=== PATIENT | female | born 1955 | race African-American/Black ===

== ENCOUNTER 2024-09-04 19:14 | Inpatient (IN) | payer MEDICARE, MEDICAID, OTHER ==
[~2024-09-04] VITALS: Ht 157.5 cm; Wt 56.7 kg
[2024-09-04] MEDS ORDERED: METHYLPREDNISOLONE SOD SUCC 125MG/2ML (ACT-O-VIAL) IV STA (19:21)
[2024-09-04] MEDS ORDERED: ASPIRIN 81MG TABLET PO ONE (19:30)
[2024-09-04] MEDS ORDERED: ALBUTEROL (0.083%) 2.5MG/3ML NEB HHN SCH (19:30)
[2024-09-04 19:50] LABS: BASOPHILS % 1.2 % (0.0-2.0); EOSINOPHILS % 1.7 % (0.0-5.0); HEMATOCRIT. 40.8 % (36.0-48.0); HEMOGLOBIN. 13.6 g/dL (12.0-16.0); LYMPHOCYTES % 31.5 % (20.0-50.0); MEAN CORPUSCULAR HEMOGLOBIN 31.1 pg (28.0-32.0); MEAN CORPUSCULAR HGB CONC 33.4 g/dL (31.0-37.0); MONOCYTES % 13.8 % (2.0-8.0); NEUTROPHILS % 51.8 % (40.0-76.0); PLATELET 204 x1000/uL (130-400); RED BLOOD CELL COUNT 4.39 mill/uL (4.2-5.4); RED CELL DISTRIBUTION WIDTH 13.1 % (11.6-14.6); WHITE BLOOD COUNT 6.1 x1000/uL (4.5-11.0)
[2024-09-04 20:00] LABS: CHLORIDE 101 mEq/L (98-107); SODIUM 137 mEq/L (136-145)
[2024-09-04 20:01] LABS: CALCIUM 9.9 mg/dL (8.7-10.4); CARBON DIOXIDE 33 mEq/L (21-32)
[2024-09-04 20:06] LABS: GLUCOSE 139 mg/dL (70-105); UREA NITROGEN BLOOD 10 mg/dL (9-23)
[2024-09-04 20:07] LABS: TROPONIN I HIGH SENSITIVITY 7 ng/L (3.0-34)
[2024-09-04] MEDS ORDERED: GUAIFENESIN 200MG 200 MG TABLET PO PRN (21:30)
[2024-09-04] MEDS ORDERED: IPRATROPIUM/ALBUTEROL 0.5-3(2.5)MG/3ML NEB HHN PRN (21:30)
[2024-09-04] MEDS ORDERED: ONDANSETRON HCL 4MG/2ML INJ IV PRN (21:30)
[2024-09-04 22:31] LABS: TROPONIN I HIGH SENSITIVITY 74 ng/L (3.0-34)
[2024-09-04] MEDS: METHYLPREDNISOLONE SOD SUCC 125MG/2ML (ACT-O-VIAL) IV NR (23:03)
[2024-09-05] VITALS (11 sets, daily range): BP systolic 102–138; BP diastolic 53–75; PULSE 88–108; RESP 16–22; TEMP 36.16956–37.0852; O2SAT 94–100
[2024-09-05] MEDS ORDERED: ACETAMINOPHEN 325MG TABLET PO PRN (01:00)
[2024-09-05] MEDS ORDERED: ONDANSETRON HCL 4MG/2ML INJ IV PRN (01:00)
[2024-09-05] MEDS ORDERED: HYDRALAZINE 20MG/ML VIAL IV PRN (01:00)
[2024-09-05] MEDS: METHYLPREDNISOLONE SOD SUCC 125MG/2ML (ACT-O-VIAL) IV SCH (05:37)
[2024-09-05] MEDS: SODIUM CHLORIDE 0.9% 3ML FLUSH IVF SCH (05:43)
[2024-09-05] MEDS: IPRATROPIUM/ALBUTEROL 0.5-3(2.5)MG/3ML NEB HHN PRN (05:51)
[2024-09-05] MEDS: IPRATROPIUM/ALBUTEROL 0.5-3(2.5)MG/3ML NEB HHN SCH (08:15)
[2024-09-05] MEDS: FAMOTIDINE 20MG TABLET PO SCH (09:20)
[2024-09-05] MEDS: GUAIFENESIN 600MG ER TABLET PO SCH (09:20)
[2024-09-05] MEDS: AMLODIPINE 5MG TABLET PO SCH (09:21)
[2024-09-05] MEDS: ENOXAPARIN 30MG/0.3ML SYR SUBCUT SCH (09:24)
[2024-09-05] MEDS ORDERED: MIRT-145 PO (18:47)
[2024-09-05] MEDS ORDERED: PRAZ1CAP5 PO (18:47)
[2024-09-05] MEDS ORDERED: VIST25 PO (18:47)
[2024-09-05] MEDS ORDERED: ABIL10 PO (18:47)
[2024-09-05] MEDS: MIRTAZAPINE 15MG TABLET PO SCH (20:56)
[2024-09-05] MEDS: HYDROXYZINE 25MG TABLET PO SCH (20:56)
[2024-09-05] MEDS: ARIPIPRAZOLE 5MG TABLET PO SCH (21:58)
[2024-09-05] MEDS: METHYLPREDNISOLONE SOD SUCC 40MG/ML (ACT-O-VIAL) IV SCH (22:02)
[2024-09-06] VITALS (12 sets, daily range): BP systolic 133–161; BP diastolic 72–88; PULSE 78–115; RESP 11–24; TEMP 36.16956–36.78072; O2SAT 96–100
[2024-09-06] MEDS: DIPHENHYDRAMINE 50MG/ML VIAL IV PRN (02:51)
[2024-09-06] MEDS: ACETAMINOPHEN 325MG TABLET PO PRN (02:55)
[2024-09-06] MEDS: LORAZEPAM 2MG/ML INJ IV PRN (04:13)
[2024-09-06] MEDS: LISINOPRIL 10MG TABLET PO SCH (08:26)
[2024-09-06] MEDS ORDERED: IPRATROPIUM/ALBUTEROL 0.5-3(2.5)MG/3ML NEB HHN NR (10:00)
[2024-09-06] MEDS: METHYLPREDNISOLONE SOD SUCC 125MG/2ML (ACT-O-VIAL) IV NR (10:05)
[2024-09-06 11:27] LABS: BG BASE EXCESS -0.5 mmol/L (-2.0-3.0); BG CARBOXYHEMOGLOBIN 0.7 % (0.5-1.5); BG DEOXYHEMOGLOBIN 2.2 % (0.0-5.0); BG FRACTION INSPIRED OXYGEN 36; BG METHEMOGLOBIN 0.1 % (0.5-1.5); BG OXYGEN SATURATION 97.8 % (94.0-98.0); BG PCO2 56.7 mmHg (32.0-45.0); BG PH 7.296 (7.350-7.450); BG PO2 104.6 mmHg (83.0-108.0); BG SAMPLE SITE RIGHT RADIAL; BG TOTAL HEMOGLOBIN 13.5 g/dL (12.0-16.0); BG VENT MODE NASAL CANNULA
[2024-09-06 14:41] LABS: CLARITY URINE CLEAR (CLEAR); COLOR URINE YELLOW (YELLOW); GLUCOSE URINE NEGATIVE (NEGATIVE); KETONES URINE NEGATIVE (NEGATIVE); LEUKOCYTE ESTERASE URINE NEGATIVE (NEGATIVE); NITRITE URINE NEGATIVE (NEGATIVE); OCCULT BLOOD URINE NEGATIVE (NEGATIVE); PH URINE 5.5 (4.5-8.0); PROTEIN URINE NEGATIVE (NEGATIVE); SPECIFIC GRAVITY URINE 1.013 (1.005-1.030); UROBILINOGEN URINE 0.2 E.U./dL (0.2-1.0)
[2024-09-06] MEDS: METHYLPREDNISOLONE SOD SUCC 125MG/2ML (ACT-O-VIAL) IV SCH (14:50)
[2024-09-06 14:59] LABS: *AMPHETAMINES SCREEN URINE NEGATIVE (NEGATIVE); *BARBITURATES SCREEN URINE NEGATIVE (NEGATIVE); *BENZODIAZEPINES SCREEN URINE NEGATIVE (NEGATIVE); *COCAINE SCREEN URINE NEGATIVE (NEGATIVE); CANNABINOID URINE SCREEN PRESUMPTIVE POSITIVE (NEGATIVE); ECSTASY MDMA SCREEN URINE NEGATIVE (NEGATIVE); METHADONE URINE SCREEN NEGATIVE (NEGATIVE); OPIATES URINE SCREEN NEGATIVE (NEGATIVE); PHENCYCLIDINE URINE SCREEN NEGATIVE (NEGATIVE)
[2024-09-07] VITALS (15 sets, daily range): BP systolic 100–185; BP diastolic 51–97; PULSE 88–123; RESP 10–21; TEMP 36.44736–36.55848; O2SAT 96–100
[2024-09-07 15:15] LABS: BG BASE EXCESS 5.3 mmol/L (-2.0-3.0); BG CARBOXYHEMOGLOBIN 0.5 % (0.5-1.5); BG DEOXYHEMOGLOBIN 5.1 % (0.0-5.0); BG FRACTION INSPIRED OXYGEN 29; BG METHEMOGLOBIN 0.3 % (0.5-1.5); BG OXYGEN SATURATION 94.9 % (94.0-98.0); BG OXYHEMOGLOBIN 94.1 % (94.0-98.0); BG PCO2 62.9 mmHg (32.0-45.0); BG PH 7.338 (7.350-7.450); BG PO2 74.3 mmHg (83.0-108.0); BG SAMPLE SITE LEFT RADIAL; BG TOTAL HEMOGLOBIN 13.8 g/dL (12.0-16.0); BG VENT MODE NASAL CANNULA
[2024-09-07] MEDS: IPRATROPIUM/ALBUTEROL 0.5-3(2.5)MG/3ML NEB HHN SCH (16:18)
[2024-09-07] MEDS: BUDESONIDE 0.5MG/2ML NEB HHN SCH (16:18)
[2024-09-07 17:56] LABS: CHLORIDE 103 mEq/L (98-107); POTASSIUM 4.5 mEq/L (3.5-5.1); SODIUM 140 mEq/L (136-145)
[2024-09-07 17:57] LABS: CALCIUM 10.1 mg/dL (8.7-10.4); CARBON DIOXIDE 31 mEq/L (21-32)
[2024-09-07 18:02] LABS: CREATININE 0.8 mg/dL (0.6-1.0); GLUCOSE 198 mg/dL (70-105)
[2024-09-07 18:03] LABS: UREA NITROGEN BLOOD 26 mg/dL (9-23)
[2024-09-07 18:04] LABS: ALANINE AMINOTRANSFERASE 49 IU/L (10-49); ALBUMIN 4.7 g/dL (3.2-4.8); ASPARTATE AMINOTRANSFERASE 57 IU/L (<34)
[2024-09-07 18:05] LABS: BILIRUBIN TOTAL 0.4 mg/dL (0.1-1.0); PROTEIN TOTAL 7.7 g/dL (6.0-8.3)
[2024-09-07] MEDS ORDERED: ABIL10 PO (18:14)
[2024-09-07] MEDS ORDERED: VIST25 PO (18:14)
[2024-09-07] MEDS: MONTELUKAST SODIUM 10MG TABLET PO SCH (18:34)
[2024-09-08] VITALS (16 sets, daily range): BP systolic 124–162; BP diastolic 60–90; PULSE 95–121; RESP 10–30; TEMP 36.33624–36.89184; O2SAT 95–100
[2024-09-08] MEDS: ARIPIPRAZOLE 5MG TABLET PO SCH (09:46)
[2024-09-08] MEDS: CLONIDINE 0.1MG TABLET PO PRN (21:51)
[2024-09-08] MEDS: ZOLPIDEM TARTRATE 5MG TABLET PO PRN (23:26)
[2024-09-09] VITALS (11 sets, daily range): BP systolic 108–155; BP diastolic 72–117; PULSE 89–122; RESP 14–29; TEMP 36.33624–36.83628; O2SAT 87–100
[2024-09-09 12:17] LABS: BG BASE EXCESS 8.8 mmol/L (-2.0-3.0); BG CARBOXYHEMOGLOBIN 1.1 % (0.5-1.5); BG FRACTION INSPIRED OXYGEN 21; BG HCO3 ACT 34.1 mmol/L (21.0-28.0); BG METHEMOGLOBIN 0.3 % (0.5-1.5); BG OXYGEN SATURATION 88.8 % (94.0-98.0); BG OXYHEMOGLOBIN 87.6 % (94.0-98.0); BG PCO2 48.9 mmHg (32.0-45.0); BG PH 7.461 (7.350-7.450); BG PO2 52.7 mmHg (83.0-108.0); BG SAMPLE SITE RIGHT RADIAL; BG TOTAL HEMOGLOBIN 14.4 g/dL (12.0-16.0); BG VENT MODE ROOM AIR
[2024-09-09] MEDS: NICOTINE 21MG PATCH TD SCH (15:40)
[2024-09-09] MEDS: ARIPIPRAZOLE 5MG TABLET PO SCH (17:00)
[2024-09-10] VITALS (7 sets, daily range): BP systolic 135–179; BP diastolic 51–120; PULSE 84–113; RESP 14–22; TEMP 36.55848–37.503; O2SAT 95–99
[2024-09-11] VITALS (8 sets, daily range): BP systolic 111–153; BP diastolic 64–98; PULSE 87–113; RESP 12–25; TEMP 36.28068–37.2252; O2SAT 94–100
[2024-09-11] MEDS: BUDESONIDE 0.5MG/2ML NEB HHN SCH (12:37)
[2024-09-11] MEDS: ALBUTEROL (0.083%) 2.5MG/3ML NEB HHN SCH (12:38)
[2024-09-11] MEDS: METHYLPREDNISOLONE SOD SUCC 40MG/ML (ACT-O-VIAL) IV SCH (13:43)
[2024-09-11] MEDS: QUETIAPINE FUMARATE 25MG TABLET PO PRN (22:55)
[2024-09-12] VITALS (10 sets, daily range): BP systolic 109–149; BP diastolic 67–82; PULSE 79–106; RESP 9–20; TEMP 35.94732–37.11408; O2SAT 89–99
[2024-09-13 08:00] VITALS: BP 160/65; PULSE 93; PULSE 94; RESP 18; RESP 20; TEMP 36.114; O2SAT 98
[2024-09-13 12:00] VITALS: BP 160/65; PULSE 92; RESP 18; TEMP 36.114; O2SAT 98
[2024-09-13] MEDS ORDERED: HYDRALAZINE 10 MG in SODIUM CHLORIDE 0.9% 49.5 ML IV PRN (13:30)
[2024-09-13 16:00] VITALS: BP 135/75; PULSE 88; RESP 17; TEMP 36.114; O2SAT 98
[2024-09-13 20:00] VITALS: BP 132/72; PULSE 94; RESP 18; TEMP 36.72516; O2SAT 97
[2024-09-13] MEDS: IPRATROPIUM BROMIDE (0.02%) 0.5MG/2.5ML NEB HHN STA (21:55)
[2024-09-13] MEDS: QUETIAPINE FUMARATE 50MG TABLET PO SCH (22:01)
[2024-09-13 22:37] VITALS: PULSE 71; RESP 20; O2SAT 97
[2024-09-14] VITALS (10 sets, daily range): BP systolic 126–142; BP diastolic 57–81; PULSE 67–114; RESP 18–20; TEMP 36.22512–36.89184; O2SAT 94–100
[2024-09-14] MEDS: BUDESONIDE 0.5MG/2ML NEB HHN SCH (21:00)
[2024-09-15] VITALS (11 sets, daily range): BP systolic 107–142; BP diastolic 50–80; PULSE 84–111; RESP 18–22; TEMP 36.05844–37.61412; O2SAT 94–100
[2024-09-15] MEDS ORDERED: BUDESONIDE 0.5MG/2ML NEB HHN SCH (11:30)
[2024-09-15] MEDS: METHYLPREDNISOLONE SOD SUCC 40MG/ML (ACT-O-VIAL) IV SCH (14:24)
[2024-09-16] VITALS (10 sets, daily range): BP systolic 128–164; BP diastolic 58–87; PULSE 81–101; RESP 16–20; TEMP 36.33624–36.89184; O2SAT 98–99
[2024-09-16] MEDS: ALBUTEROL (0.083%) 2.5MG/3ML NEB HHN PRN (17:16)
[2024-09-17] VITALS (7 sets, daily range): BP systolic 116–173; BP diastolic 67–99; PULSE 70–97; RESP 18–20; TEMP 36.16956–37.16964; O2SAT 95–99
[2024-09-18] VITALS (8 sets, daily range): BP systolic 120–143; BP diastolic 62–76; PULSE 74–98; RESP 17–22; TEMP 36.6696–37.00296; O2SAT 96–100
[2024-09-19] VITALS (9 sets, daily range): BP systolic 120–159; BP diastolic 60–75; PULSE 76–91; RESP 18–20; TEMP 36.16956–37.11408; O2SAT 96–100
[2024-09-19] MEDS: ARIPIPRAZOLE 5MG TABLET PO SCH (08:30)
[2024-09-19] MEDS: HYDROXYZINE 25MG TABLET PO PRN (14:15)
[2024-09-19] MEDS: PROMETHAZINE/DEXTROMETHORPHAN 6.25-15MG/5ML PO PRN (21:17)
[2024-09-20] VITALS: BP 148/78; PULSE 84; RESP 18; TEMP 36.72516; O2SAT 100
[2024-09-20 04:00] VITALS: BP 137/73; PULSE 81; RESP 18; TEMP 36.89184; O2SAT 100
[2024-09-20 08:00] VITALS: BP 137/65; PULSE 95; RESP 19; TEMP 36.50292; O2SAT 100
[2024-09-20 12:00] VITALS: BP 132/66; PULSE 90; RESP 19; TEMP 36.00288; O2SAT 99
[2024-09-20 16:00] VITALS: BP 130/61; PULSE 92; RESP 19; TEMP 36.6696; O2SAT 100
[2024-09-20] MEDS: HYDROXYZINE 25MG TABLET PO PRN (16:02)
[2024-09-20 20:00] VITALS: BP 161/74; PULSE 100; RESP 18; TEMP 36.33624; O2SAT 100
[2024-09-20] MEDS: QUETIAPINE FUMARATE 50MG TABLET PO SCH (20:09)
[2024-09-21] VITALS (7 sets, daily range): BP systolic 120–169; BP diastolic 67–76; PULSE 91–100; RESP 18–19; TEMP 36.28068–36.78072; O2SAT 97–100
[2024-09-22] VITALS (7 sets, daily range): BP systolic 120–159; BP diastolic 58–62; PULSE 83–100; RESP 18–20; TEMP 36.44736–36.83628; O2SAT 97–100
[2024-09-22] MEDS: PREDNISONE 20MG TABLET PO SCH (09:15)
[2024-09-22] MEDS: MAGNESIUM/ALUMINUM HYDROXIDE/SIMETHICONE 30ML UDC PO PRN (11:58)
[2024-09-22] MEDS: ALBUTEROL (0.083%) 2.5MG/3ML NEB HHN PRN (17:20)
[2024-09-22] MEDS: ALBUTEROL (0.083%) 2.5MG/3ML NEB HHN SCH (21:07)
[2024-09-23] VITALS (9 sets, daily range): BP systolic 122–157; BP diastolic 68–72; PULSE 84–112; RESP 15–20; TEMP 35.89176–37.11408; O2SAT 98–100
[2024-09-24] VITALS (9 sets, daily range): BP systolic 121–144; BP diastolic 61–74; PULSE 70–104; RESP 16–19; TEMP 36.3918–37.11408; O2SAT 98–100
[2024-09-25] VITALS (7 sets, daily range): BP systolic 108–150; BP diastolic 60–68; PULSE 91–101; RESP 18–20; TEMP 36.28068–42.2256; O2SAT 99–100
[2024-09-26] VITALS (11 sets, daily range): BP systolic 112–135; BP diastolic 61–67; PULSE 73–105; RESP 18–20; TEMP 35.78064–36.72516; O2SAT 97–100
[2024-09-26 18:32] LABS: BG BASE EXCESS 3.8 mmol/L (-2.0-3.0); BG CARBOXYHEMOGLOBIN 0.3 % (0.5-1.5); BG DEOXYHEMOGLOBIN 2.9 % (0.0-5.0); BG FRACTION INSPIRED OXYGEN 21; BG METHEMOGLOBIN 0.3 % (0.5-1.5); BG OXYGEN SATURATION 97.1 % (94.0-98.0); BG OXYHEMOGLOBIN 96.5 % (94.0-98.0); BG PCO2 40.4 mmHg (32.0-45.0); BG PH 7.458 (7.350-7.450); BG PO2 87.8 mmHg (83.0-108.0); BG SAMPLE SITE RIGHT RADIAL; BG TOTAL HEMOGLOBIN 12.7 g/dL (12.0-16.0); BG VENT MODE ROOM AIR
[2024-09-27] VITALS (9 sets, daily range): BP systolic 98–136; BP diastolic 54–76; PULSE 90–102; RESP 18–20; TEMP 35.89176–36.89184; O2SAT 96–99
[2024-09-27 07:13] LABS: CHLORIDE 104 mEq/L (98-107); POTASSIUM 4.1 mEq/L (3.5-5.1); SODIUM 141 mEq/L (136-145)
[2024-09-27 07:14] LABS: CALCIUM 9.8 mg/dL (8.7-10.4); CARBON DIOXIDE 34 mEq/L (21-32)
[2024-09-27 07:15] LABS: BASOPHILS % 0.2 % (0.0-2.0); EOSINOPHILS % 0.7 % (0.0-5.0); LYMPHOCYTES % 25.1 % (20.0-50.0); MEAN CORPUSCULAR HEMOGLOBIN 31.5 pg (28.0-32.0); MEAN CORPUSCULAR HGB CONC 33.5 g/dL (31.0-37.0); MEAN PLATELET VOLUME 8.5 fl (7.4-10.4); MONOCYTES % 5.4 % (2.0-8.0); NEUTROPHILS % 68.6 % (40.0-76.0); PLATELET 134 x1000/uL (130-400); RED BLOOD CELL COUNT 3.51 mill/uL (4.2-5.4); WHITE BLOOD COUNT 8.5 x1000/uL (4.5-11.0)
[2024-09-27 07:19] LABS: CREATININE 0.7 mg/dL (0.6-1.0); GLUCOSE 102 mg/dL (70-105); UREA NITROGEN BLOOD 19 mg/dL (9-23)
[2024-09-27 07:21] LABS: PHOSPHORUS 2.1 mg/dL (2.5-4.9)
[2024-09-27] MEDS: GUAIFENESIN 200MG/10ML SUGAR FREE UDC PO PRN (14:57)
[2024-09-27] MEDS: MAGNESIUM 4 G PREMIX 100 ML IV NR (15:00)
[2024-09-28] VITALS (9 sets, daily range): BP systolic 117–148; BP diastolic 54–74; PULSE 89–108; RESP 16–20; TEMP 36.00288–36.89184; O2SAT 93–100
[2024-09-28] MEDS: ALBUTEROL (0.083%) 2.5MG/3ML NEB HHN SCH (02:30)
[2024-09-28] MEDS: POTASSIUM PHOSPHATE 20 MMOL in DEXT 5% WATER 243.3333 ML IV NR (02:49)
[2024-09-28] MEDS ORDERED: ALBUTEROL (0.083%) 2.5MG/3ML NEB HHN SCH (06:00)
[2024-09-29] VITALS (9 sets, daily range): BP systolic 96–146; BP diastolic 48–72; PULSE 65–101; RESP 18–22; TEMP 36.114–36.83628; O2SAT 93–100
[2024-09-30] VITALS (11 sets, daily range): BP systolic 125–173; BP diastolic 63–88; PULSE 69–103; RESP 18–22; TEMP 36.114–36.89184; O2SAT 6–100
[2024-09-30] MEDS: QUETIAPINE FUMARATE 50MG TABLET PO SCH (09:02)
[2024-10-01] VITALS (11 sets, daily range): BP systolic 117–178; BP diastolic 60–77; PULSE 83–105; RESP 15–24; TEMP 36.00288–36.28068; O2SAT 96–100
[2024-10-01] MEDS: CYANOCOBALAMIN 1000MCG/ML VIAL IM NR (20:16)
[2024-10-02] VITALS (10 sets, daily range): BP systolic 97–149; BP diastolic 50–71; PULSE 72–105; RESP 16–20; TEMP 36.33624–36.55848; O2SAT 95–100
[2024-10-03] VITALS: BP 120/64; PULSE 103; RESP 19; TEMP 36.44736; O2SAT 97
[2024-10-03 04:00] VITALS: BP 122/58; PULSE 98; RESP 20; TEMP 36.89184; O2SAT 100
[2024-10-03 08:00] VITALS: BP 128/70; PULSE 113; RESP 20; TEMP 36.22512; O2SAT 96
[2024-10-03 10:24] VITALS: BP 128/70; PULSE 100; TEMP 97.2; O2SAT 96
== END 2024-10-03 12:45 | disposition home or self-care (01) | DRG 205 ==
LOC: ER 19:14 → 5WST 21:49 → EDBEDREQ 21:51 → EDBEDREQTM 21:51 → 7EST 09-05 18:02 → 5EST 09-06 10:47 → 6EST 09-12 09:31 → 8EST 09-19 11:35
PROVIDERS: ADMIT Internal Medicine; ATTEND Internal Medicine
DX: J68.0 Bronchitis and pneumonitis due to chemicals, gases, fumes and vapors (principal); J96.01 Acute respiratory failure with hypoxia; J96.02 Acute respiratory failure with hypercapnia; Z59.02 Unsheltered homelessness; I10 Essential (primary) hypertension; E83.39 Other disorders of phosphorus metabolism; Z20.822 Contact with and (suspected) exposure to COVID-19; E83.42 Hypomagnesemia; F48.9 Nonpsychotic mental disorder, unspecified; F41.1 Generalized anxiety disorder; E78.00 Pure hypercholesterolemia, unspecified; F31.9 Bipolar disorder, unspecified; F17.210 Nicotine dependence, cigarettes, uncomplicated; Z79.899 Other long term (current) drug therapy
CPT/HCPCS: 36415; 36600; 71045; 80048; 80053; 80305; 81003; 82375; 82805; 83735; 83880; 84100; 84484; 85025; 87426; 93005; 93970; 94070; 94618; 94640; 94664; 97110; 97116; 97162; 97166; 97530; 97535; 99291; C1893; J0360; J1200; J1650; J2060; J2919; J2920; J3420; J3475; J3490; J7060; J7512; J7626

== ENCOUNTER 2024-11-04 10:45 | Emergency (ER) | payer MEDICAID, MEDICARE, OTHER ==
[~2024-11-04] VITALS: Ht 160 cm; Wt 57.0 kg
[~2024-11-04 10:45] MED LIST: ABIL10 PO; MIRT-145 PO; PRAZ1CAP5 PO; VIST25 PO
[2024-11-04 11:57] LABS: HEMATOCRIT 38.8 % (36.0-48.0); HEMOGLOBIN 13.1 g/dL (12.0-16.0); MEAN CORPUSCULAR HEMOGLOBIN 31.3 pg (28.0-32.0); MEAN CORPUSCULAR HGB CONC 33.8 g/dL (31.0-37.0); MEAN CORPUSCULAR VOLUME 92.5 fL (81.0-99.0); PLATELET 210 x1000/uL (130-400); RED BLOOD CELL COUNT 4.19 mill/uL (4.2-5.4); RED CELL DISTRIBUTION WIDTH 13.9 % (11.6-14.6); WHITE BLOOD COUNT 5.7 x1000/uL (4.5-11.0)
[2024-11-04] MEDS ORDERED: DEXAMETHASONE 4MG TABLET PO ONE (12:00)
[2024-11-04] MEDS: IPRATROPIUM/ALBUTEROL 0.5-3(2.5)MG/3ML NEB HHN ONE ×2 (12:05→13:27)
[2024-11-04 12:06] VITALS: BP 103/41; TEMP 36.7; O2SAT 100
[2024-11-04 12:08] LABS: CHLORIDE 108 mEq/L (98-107); POTASSIUM 3.8 mEq/L (3.5-5.1); SODIUM 143 mEq/L (136-145)
[2024-11-04 12:09] LABS: CARBON DIOXIDE 25 mEq/L (21-32)
[2024-11-04 12:10] LABS: CALCIUM 9.5 mg/dL (8.7-10.4)
[2024-11-04 12:14] LABS: CREATININE 0.8 mg/dL (0.6-1.0); GLUCOSE 105 mg/dL (70-105); UREA NITROGEN BLOOD 11 mg/dL (9-23)
[2024-11-04] MEDS ORDERED: DEXAMETHASONE 4MG TABLET PO NR ×2 (12:15→14:00)
[2024-11-04 12:16] LABS: TROPONIN I HIGH SENSITIVITY 5 ng/L (3.0-34)
[2024-11-04 13:40] VITALS: PULSE 96; RESP 18; O2SAT 97
[2024-11-04] MEDS ORDERED: ALBU18HF2 IH (13:55)
[2024-11-04] MEDS ORDERED: UMEC1DIS INH (13:55)
[2024-11-04] MEDS ORDERED: BUDE6HFA INH (13:55)
== END 2024-11-04 12:05 | disposition left against medical advice (07) ==
LOC: ER 10:45
DX: J44.9 Chronic obstructive pulmonary disease, unspecified (principal); F41.9 Anxiety disorder, unspecified; F17.210 Nicotine dependence, cigarettes, uncomplicated; I50.9 Heart failure, unspecified; Z76.0 Encounter for issue of repeat prescription; Z79.899 Other long term (current) drug therapy
CPT/HCPCS: 36415; 71045; 80048; 84484; 85027; 93005; 94640; 99285; J8540